=== PATIENT | male | born 1960 | race Caucasian/White ===

== ENCOUNTER 2024-10-03 12:33 | Emergency (ER) | payer OTHER, SELFPAY ==
[2024-10-03] VITALS (21 sets, daily range): BP systolic 130–172; BP diastolic 52–115; PULSE 85–142; RESP 13–33; O2SAT 96–100
--- NOTE | ~2024-10-03 | CT_ITS ---
CT brain wo con Ordering provider: Brown Khan MD History: 64 years Male with . AMS, possible withdrawals . Comparison: None. Technique: CT of the head without contrast. Radiation reduction technique utilized. The dose-length product was [id number]. FINDINGS: BRAIN PARENCHYMA AND CSF SPACES: Hypodensity in the left frontal lobe which is most likely chronic in farct.. No midline shift, mass effect or hemorrhage. The brain parenchyma and CSF spaces are otherwi se normal. Old lacunar infarcts seen in the left basal ganglia and both thalami. VISUALIZED PARANASAL SINUSES: Well aerated. MASTOIDS: Well aerated. BONES: The bones appear intact. SOFT TISSUES: Visualized nasopharynx is normal. Superficial soft tissues are normal. IMPRESSION: No acute intracranial findings. Reviewed, dictated and finalized at location A.
--- NOTE | 2024-10-03 12:36 | ECG_ITS ---
Test Date: 2024-10-03 12:47:29 Measurements Intervals [place] Rate: 93 P: 81 [place]: 142 QRS: -1 QRSD: 81 T: 76 QT: 349 QTc: 435 Interpretive Statements SINUS RHYTHM POSSIBLE LEFT ATRIAL ENLARGEMENT POSSIBLE RIGHT VENTRICULAR CONDUCTION DELAY BORDERLINE R WAVE PROGRESSION, ANTERIOR LEADS BASELINE ARTIFACT- I, II, AVR, AVL, AVF, V1 BORDERLINE ECG No previous ECG available for comparison Electronically Signed On 10-03-2024 13:05:02 CDT by Blair Novoa D.O.
[2024-10-03 12:51] LABS: Basophils Absolute Auto 0.1 K/mm3 (0.0-0.1); Basophils Percent Auto 0.6 % (0.2-1.2); Eosinophils Absolute Auto 0.1 K/mm3 (0-0.3); Hematocrit 42.6 % (42.0-52.0); Hemoglobin 14.6 g/dL (14.0-18.0); Immature Granulocyte Absolute 0.04 K/mm3 (0.00-0.031); Immature Granulocyte Percent A 0.3 % (0-0.5); Lymphocytes Absolute Auto 2.19 K/mm3 (0.9-3.2); Lymphocytes Percent Auto 19.2 % (18.3-44.2); Mean Corpuscular HGB Conc 34.3 g/dl (32-36); Mean Corpuscular Hemoglobin 30.4 pg (26-34); Mean Corpuscular Volume 88.8 fl (80-100); Mean Platelet Volume 9.1 fl (7.4-10.4); Monocytes Absolute Auto 0.7 K/mm3 (0.1-0.6); Monocytes Percent Auto 6.5 % (2.6-8.5); Neutrophils Absolute Auto 8.3 K/mm3 (1.3-6.7); Neutrophils Percent Auto 72.4 % (45.5-73.1); Platelet Count Result 203 k/mm3 (150-375); Red Cell Distribution Width 13.9 % (11.5-14.5); White Blood Count 11.4 K/mm3 (4.5-10.0)
[2024-10-03 12:59] LABS: Alanine Aminotransferase 160 U/L (6-50); Albumin Level 4.9 g/dL (3.5-5.1); Alkaline Phosphatase 141 U/L (38-126); Anion Gap 17 mmol/L (4-12); Aspartate Amino Transferase 154 U/L (17-59); Bilirubin,Total 1.8 mg/dL (0.2-1.3); Blood Urea Nitrogen 6 mg/dL (9-20); Calcium 9.2 mg/dL (8.4-10.2); Carbon Dioxide 22 mmol/L (22-30); Chloride 93 mmol/L (98-107); Estimated CRCL calculation 103 ml/min; Estimated Glomerular Filt Rate > 60; Glucose 140 mg/dL (65-110); Potassium 4.4 mmol/L (3.4-5.0); Sodium 132 mmol/L (137-145); Total Protein 8.7 g/dL (6.3-8.2)
[2024-10-03 13:08] LABS: INR 1.1; Prothrombin Time 14.2 Seconds (11.1-14.7)
[2024-10-03 13:09] LABS: Partial Thromboplastin Time 29.7 Seconds (22.3-36.8)
--- OUTSIDE RECORDS SUMMARY | 2024-10-03 13:23 | XMS_ITS | Clinical Summary ---
Author Organization [facility] Address [address] [place] [address] Care Team Providers Care Laboratory Operations Coordinator Name Role Phone Kartik Lunsford DO Primary Care Provider [phone] [facility],non-owned Affiliates and Associated Physician Practices is amultiple site organization consisting of ambulatory clinics and hospital sitesin [place] and [place]. This disclosure is being madepursuant to the Care Everywhere program and may not contain all information available regarding this patient. Last updated 18.[facility] Allergies No known active allergies Medications * Be aware that medications may not be up to date on this document. Alwaysverify current medications with the patient. timolol maleate (Timoptic) 0.5 % ophthalmic solutionIndica tions:Glaucoma Instill 1 (one) drop into both eyes 2 times daily Reasons: Glaucoma Active rsv vaccine preg or 60y+ (Abrysvo) 120 MCG/0.5ML SOLR injection Pharmacist to administer 0.5 mL intramuscularly for 1 dose. 1 mL 10/15/19 24 Active Additional Information Patient not taking.Reported on 11/02/2023 brimonidine (Alphagan) 0.2 % ophthalmic solution 1 (one) drop 2 times daily Active amLODIPine (Norvasc) 5 MG tablet Take 1 (one) tablet by mouth once daily 90 tablet 3 04/19/20 24 Active atorvastatin (Lipitor) 40 MG tablet Take 1 (one) tablet by mouth at bedtime 90 tablet 1 04/29/19 25 Active apixaban (Eliquis) 5 MG tablet Take 1 (one) tablet by mouth 2 times daily for a total of 90 days from 09/17/2023, then check with neurology for further need. 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 - Cardiology [address] [place] [phone] PFO (patent foramen ovale) (HCC) ; Acute ischemic stroke (HCC); Status post placement of implantable loop recorder 08/04/2024 1:00 AM CDT Clinical Support [facility] - Cardiology [address] [place] [phone] PFO (patent foramen ovale) (HCC) ; Acute ischemic stroke (HCC) from Last 3 Months Social History Tobacco Use Types Packs/Day Years Used Date Smoking Tobacco: Former Cigarettes 1 15 0 09/17/2008 - 09/18/2023 Passive Smoke Exposure: Current Smokeless Tobacco: Never Tobacco Cessation:Counseling Given: Not Answered Alcohol Use Standard Drinks/Week Comments Not Currently 0 (1 standard drink = 0.6 oz pur e alcohol) AUDIT-C Answer Date Recorded Q1: How often do you have a drink containing alcohol? Never 06/06/2024 Q2: How many drinks containi ng alcohol do you have on a typical day when you are drinking? Patient does not drink Q3: How often do you have si x or more drinks on one occasion? Never 06/06/2024 Overall Financial Resource Strain (CARDIA) Answe r Date Recorded How hard is it for you to pa y for the very basics like food, housing, medical care, and heating? Not hard at all 09/17/2023 PHQ-2 Answer Date Recorded Patient Health Questionnaire-2 Score 0 09/22/2023 [facility] Occupat ional Health - Occupational Stress Questionnaire Answer Date Recorded Do you feel stress - tense, restless, nervous, or anxious, or unable to sleep at night because your mind is troubled all the time - these days? Patient unable to answer 09/17/2023 Hunger Vital Sign Answer Date Recorded Within the past 12 months, y ou worried that your food would run out before you got the money to buy more. Never true 09/17/19 24 Within the past 12 months, t he food you bought just didn't last and you didn't have money to get more. Never true 09/17/2023 PRAPARE - Transportation Answer Date Re corded In the past 12 months, has l ack of transportation kept you from medical appointments or from getting medications? No 08/20 In the past 12 months, has l ack of transportation kept you from meetings, work, or from getting things needed for daily living? No 09/17/2023 Housing Stability Vital Sign Answer Fam e Recorded In the last 12 months, was t here a time when you were not able to pay the mortgage or rent on time? No 09/17/2023 In the last 12 months, how many places have you lived? 1 09/17/2023 In the last 12 months, was t here a time when you did not have a steady place to sleep or slept in a assisted (including now)? 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 Gender Identity Not on file Sexual Orientation Not on file Last Filed Vital Signs Vital Sign Reading Time Taken Comments Blood Pressure 144/97 10/02/2024 8:09 PM CDT Pulse 97 10/02/2024 8:09 PM CDT Temperature 36.2 C (97.2 F) 10/02/2024 8:09 PM CDT Respiratory Rate 18 10/02/2024 8:09 PM CDT Oxygen Saturation 100% 10/02/2024 8:09 PM CDT Inhaled Oxygen Concentration - - Weight 67.1 kg (148 lb) 10/02/2024 8:09 PM CDT Height 182.9 cm (6') 10/02/2024 8:09 PM CDT Body Mass Index 20.07 10/02/2024 8:09 PM CDT Plan of Treatment Upcoming Encounters Date Type Department Care Team (Late st Contact Info) Description 10/13/2024 1:10 AM CDT Clinical Support [facility] - Cardiology [address], [address] [phone] 11/17/2024 1:00 AM CDT Clinical Support [facility] - Cardiology [address], [address] [phone] 12/22/2024 1:00 AM CDT Clinical Support [facility]iology [address], [address] [phone] 01/26/2025 1:00 AM CDT Clinical Support [facility] - Cardiology [address], [address] [address] 03/02/2025 1:00 AM 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 Clinical Support [facility] - Cardiology [address], [address] [address] 04/06/2025 1:00 AM 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 Clinical Support [facility] - Cardiology [address], [address] [phone] Health Maintenance Due Date Last Done Comments COLOGUARD (AGES 45-75) - COLON CA SCREENING 1958 COLON MONITORING 1958 COLONOSCOPY - COLON CA SCREENING 1958 CT COLONOGRAPHY - COLON CA SCREENING 1958 Colorectal Cancer Screening 1958 FIT - COLON CA SCREENING 1958 FLEX SIG - COLON CA SCREENING 1958 MEDICARE AWV 12 MONTHS 1958 HEPATITIS C SCREENING 09/08/1976 DTAP/TDAP/TD VACCINES (1 - Tdap) 1977 PNEUMOCOCCAL VACCINE 50+ (1 of 1 - PCV) 2008 ZOSTER VACCINE (1 of 2) 2008 Respiratory Syncytial Virus (RSV) Vaccine Pt: or over 60 yrs (1 - Risk 60-74 years 1-dose series) 2018 AAA SCREENING 09/14/2023 COVID-19 VACCINE ( season) 2023 02/15/2023, 03/09/2022, 03/10/2021, Additional history exists DEPRESSION SCREENING 04/20/2024 09/21/2023 INFLUENZA VACCINE (Season Ended) 2024 HEPATITIS B VACCINE Aged Out No longe r eligible based on patient's age to complete this topic HIB VACCINE Aged Out No longer eligi ble based on patient's age to complete this topic HPV VACCINE Aged Out No longer eligi ble based on patient's age to complete this topic MENINGOCOCCAL (Group B) VACCINE SHARED DECISION-MAKING Aged Out No longer eligible based on patient's age to complete this topic MENINGOCOCCAL GROUPS A/C/Y/W VACCINE Aged Out No longer eligible based on patient's age to complete this topic Medical Devices Implanted Type Area Gallery Host Device Identifier Shelf Expiration Date Model / Serial / Lot Sys Crd Mntr Rvl Linq Ii - [id number] Implanted:Qty: 1 on 09/21/2023 by Rebekah Dhillon MD at [facility] [id number] 08/05/2024 [id number] SYS / [id number] Oclr Cv 25mm Spt Sft Wire [facility] Img - [id number] Implanted:Qty: 1 on 06/06/2024 by Charlette Scruggs MD at [facility] [employer] [id number] 09/20/2025 [id number] / [id number] / [id number] Procedures Procedure Name Priority Date/Time Associated Diagnosis Comments ERYTHROCYTE SEDIMENTATION RATE STAT 10/02/2024 9:05 PM CDT C-REACTIVE PROTEIN MELO 10/02/2024 9: 05 PM CDT COMPREHENSIVE METABOLIC PANEL STAT 10/02/2024 9:05 PM CDT CBC W AUTO DIFFERENTIAL STAT 10/02/2024 9:05 PM CDT ID ILR DEVICE INTERROGAT REMOTE Routine 09/24/2024 10:12 AM CDT PFO (patent foramen ovale) (HCC) Acute ischemic stroke (HCC) Status post placement of implantable loop recorder CARDIAC PROCEDURE ORDER 09/07/2024 ID ILR DEVICE INTERROGAT REMOTE Routine 08/06/2024 2:19 PM CDT PFO (patent foramen ovale) (HCC) Acute ischemic stroke (HCC) CARDIAC PROCEDURE ORDER 08/03/2024 ID ILR DEVICE INTERROGAT REMOTE Routine 07/11/2024 7:12 AM CDT PFO (patent foramen ovale) Acute ischemic stroke from Last 3 Months Results * C-REACTIVE PROTEIN (10/02/2024 9:05 PM CDT) C-Reactive Protein <0.5 <=0.5 mg/dL 10/02/2024 9:42 PM CDT [facility] Blood BLOOD SPECIMEN / Unknown Venipuncture / Unknown 10/02/2024 9:05 PM CDT 10/02/2024 9:10 PM CDT us Odalis Miramontes PA-C LAB - CHEMISTRY ORDERABLES Josephine lynne Result [facility] [address] [place] [address], [facility] [phone] * ERYTHROCYTE SEDIMENTATION RATE (10/02/2024 9:05 PM CDT) Erythrocyte Sedimentation Rate Westergren 9 0 - 20 MM/HR 10/02/2024 9:31 PM [facility] Blood BLOOD SPECIMEN / Unknown Venipuncture / Unknown 10/02/2024 9:05 PM CDT 10/02/2024 9:10 PM CDT us Odalis Miramontes PA-C LAB - HEMATOLOGY ORDERABLES Fin al Result [facility] [address] [place] [address], [facility] [phone] * (ABNORMAL) CBC W AUTO DIFFERENTIAL (10/02/2024 9:05 PM CDT) WBC 10.6 4.0 - 10.7 x10E9/L 10/02/2024 9:21 PM [facility] RBC Count 4.85 4.30 - 5.80 x10E12/L 10/02/2024 9:21 PM [facility] Hemoglobin 14.6 13.3 - 17.5 g/dL 10/02/2024 9:21 PM [facility] Hematocrit 41.1 38.7 - 51.1 % 10/02/2024 9:21 PM [facility] MCV 84.7 80.0 - 98.0 fL 10/02/2024 9:21 PM [facility] MCH 30.1 26.7 - 33.6 pg 10/02/2024 9:21 PM [facility] MCHC 35.5 31.7 - 36.3 g/dL 10/02/2024 9:21 PM [facility] RDW-CV 13.7 11.3 - 14.8 % 10/02/2024 9:21 PM [facility] Platelet Count 219 150 - 420 x10E9/L 10/02/2024 9:21 PM [facility] MPV 9.1 7.8 - 11.4 fL 10/02/2024 9:21 PM [facility] Neutrophil % 57.4 41.0 - 74.0 % 10/02/2024 9:21 PM [facility] Lymphocyte % 25.6 17.0 - 47.0 % 10/02/2024 9:21 PM [facility] Monocyte % 11.8(H) 3.0 - 11.0 % 10/02/2024 9:21 PM [facility] Eosinophil % 4.2 0.0 - 7.0 % 10/02/2024 9:21 PM [facility] Basophil % 0.8 0.0 - 1.6 % 10/02/2024 9:21 PM [facility] Immature Granulocytes % 0.2 0.0 - 1.0 % 10/02/2024 9:21 PM [facility] Neutrophil Absolute 6.10 1.60 - 7.50 x10E9/L 10/02/2024 9:21 PM [facility] Lymphocyte Absolute 2.71 1.00 - 4.40 x10E9/L 10/02/2024 9:21 PM [facility] Monocyte Absolute 1.25(H) 0.15 - 1.00 x10E9/L 10/02/2024 9:21 PM [facility] Eosinophil Absolute 0.44 0.00 - 0.60 x10E9/L 10/02/2024 9:21 PM [facility] Basophil Absolute 0.08 0.00 - 0.13 x10E9/L 10/02/2024 9:21 PM [facility] Blood BLOOD SPECIMEN / Unknown Venipuncture / Unknown 10/02/2024 9:05 PM CDT 10/02/2024 9:10 PM CDT us Odalis Miramontes PA-C LAB - HEMATOLOGY ORDERABLES Fin al Result [facility] [address] [place] [address], [facility] [phone] * (ABNORMAL) COMPREHENSIVE METABOLIC PANEL (10/02/2024 9:05 PM CDT) BUN <5(L) 7 - 26 mg/dL 10/02/2024 9:41 PM [facility] Creatinine 0.56(L) 0.71 - 1.16 mg/dL 10/02/2024 9:41 PM [facility] Sodium 131(L) 136 - 145 mmol/L 10/02/2024 9:41 PM [facility] Potassium 4.3 3.5 - 4.5 mmol/L 10/02/2024 9:41 PM [facility] Chloride 96(L) 98 - 107 mmol/L 10/02/2024 9:41 PM [facility] CO2 25 22 - 29 mmol/L 10/02/2024 9:41 PM [facility] Glucose 122(H) 70 - 99 mg/dL 10/02/2024 9:41 PM [facility] Calcium 9.0 8.4 - 10.2 mg/dL 10/02/2024 9:41 PM [facility] Protein Total 8.0 6.0 - 8.3 g/dL 10/02/2024 9:41 PM [facility] Albumin 4.6 3.4 - 5.0 g/dL 10/02/2024 9:41 PM [facility] Bilirubin Total 1.0 0.2 - 1.2 mg/dL 10/02/2024 9:41 PM [facility] Alkaline Phosphatase 110 40 - 150 U/L 10/02/2024 9:41 PM [facility] ALT 157(H) 5 - 55 U/L 10/02/2024 9:41 PM [facility] AST 178(H) 5 - 34 U/L 10/02/2024 9:41 PM [facility] Anion Gap 10 6 - 16 10/02/2024 9:41 PM [facility] BUN/Creatinine Ratio <9 7 - 23 10/02/2024 9:41 PM [facility] Osmolality Calculated <271(L) 275 - 295 mOsm/kg 10/02/2024 9:41 PM [facility] Albumin/Globulin Ratio 1.4 1.1 - 2.3 10/02/2024 9:41 PM CDT [facility] eGFR by CKD-EPI >90 >=90 mL/min/1.7 3 m2 10/02/2024 9:41 PM CDT [facility] Blood BLOOD SPECIMEN / Unknown Venipuncture / Unknown 10/02/2024 9:05 PM CDT 10/02/2024 9:10 PM CDT Narrative [facility] - 10/02/2024 9:41 PM CDT Estimated Glomerular Filtration Rate (eGFR) calculated using the CKD-EPI Creatinine Equation (2020), per the National Kidney Foundation and [place] [employer]ph[employer] recommendations. us Odalis Miramontes PA-C LAB - CHEMISTRY ORDERABLES Josephine batista Result [facility] [address] [place] [address], [facility] [phone] * ID ILR DEVICE INTERROGAT REMOTE (09/24/2024 10:12 AM CDT) Narrative Adriano Mcfadden MD - 09/24/2024 10:12 AM CDT Adriano Mcfadden MD 09/24/2024 10:12 AM Dear Waldemar Sims, I reviewed the remote interrogation of your loop recorder. Your device's sensing is appropriate and stable. During this most recent monitored period ending on 09/07/2024 your atrial fibrillation/tachycardia burden was 0% and you had no significant arrhythmias. Device function is normal, no programming changes are required, and no medications will need to be changed. Please call our offices if you have any further questions. Sincerely, Adriano Mcfadden 09/24/2024 us Adriano Mcfadden MD PROCEDURE/MINOR SURGICAL ORDERAB LES Final Result * CARDIAC PROCEDURE ORDER (09/07/2024) Only the most recent of2 resultswithin the time period is included. Narrative 09/07/2024 Ordered by an unspecified provider. us Scanned Document CARDIAC SERVICES ORDERABLES Fin al Result * ID ILR DEVICE INTERROGAT REMOTE (08/06/2024 2:19 PM CDT) Destiny May MD - 08/06/2024 2:19 PM CDT Destiny Sheehan MD 08/08/2024 12:02 PM Remote Interrogation: Pertinent Findings: Device function within normal limits. Afib burden 1.9%. On OAC. Destiny Sheehan MD Cardiac Electrophysiology Destiny Sheehan MD PROCEDURE/MINOR SURGICAL ORDERAB LES Final Result * ID ILR DEVICE INTERROGAT REMOTE (07/11/2024 7:12 AM CDT) Narrative Adriano Mcfadden MD - 07/11/2024 7:12 AM CDT Adriano Mcfadden MD 07/11/2024 7:13 AM Dear Waldemar Sims, I reviewed the remote interrogation of your loop recorder. Your device's sensing is appropriate and stable. During this most recent monitored period ending on 06/29/2024 your atrial fibrillation/tachycardia burden was 0% and you had no significant arrhythmias. Device function is normal, no programming changes are required, and no medications will need to be changed. Please call our offices if you have any further questions. Sincerely, Adriano Mcfadden 07/11/2024 Adriano Mcfadden MD PROCEDURE/MINOR SURGICAL ORDERAB LES Final Result from Last 3 Months Insurance [facility] MEDICARE ADV PPO Advance Directives * Full Code (Latest Code Status on File) Date Activated Date Inactivated Comments 06/06/2024 11:27 AM 06/06/2024 5:05 PM * Full Code Date Activated Date Inactivated Comments 09/17/2023 1:06 PM 09/23/2023 10:32 PM Care Teams Laboratory Operations Coordinator Relationship Specialty Start Date End Date Kartik Lunsford DO [address] [place] [phone] PCP - General Internal Medicine 10/30/23
--- OUTSIDE RECORDS SUMMARY | 2024-10-03 13:23 | XMS_ITS | Encounter Summary ---
Author Organization [facility] Address [address] [place] [address] Care Team Providers Care Helicopter Repairer Name Role Phone Kartik Lunsford DO Primary Care Provider [phone] Encounter Details Date Type Department Care Team (Latest Contact Info) Description 10/02/2024 Travel Social History Tobacco Use Types Packs/Day Years Used Date Smoking Tobacco: Former Cigarettes 1 15 0 09/17/2008 - 09/18/2023 Passive Smoke Exposure: Current Smokeless Tobacco: Never Alcohol Use Standard Drinks/Week Comments Not Currently [...] Recorded Patient Health Questionnaire-2 Score 0 09/22/2023 [facility] of Occupat ional Health - Occupational Stress [...] place to sleep or slept in a mcc (including now)? 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 Answer Date of Assessment Author No 06/06/2024 11:16 AM Rosario RN * Is person blind or have serious difficulty seeing? Answer Date of Assessment Author No 06/06/2024 11:16 AM Rosario RN * Does person have serious difficulty walking/climbing stairs? Answer Date of Assessment Author No 06/06/2024 11:16 AM Rosario RN * Does person have difficulty dressing/bathing? Answer Date of Assessment Author No 09/17/2023 3:27 PM Patsy Montero RN * Does person have difficulty doing errands alone? Answer Date of Assessment Author No 06/06/2024 11:16 AM Rosario RN documented as of this encounter Mental Status * Does person have difficulty concentrating/remembering/making decisions? Answer Entry Date Author No 06/06/2024 11:16 AM BURNING MACHINE OPERATOR Bowles RN documented in this encounter Plan of Treatment Upcoming Encounters Date Type Department Care Team (Late st Contact Info) Description 10/13/2024 1:10 AM CDT Clinical Support [facility] - Cardiology [address], [place] [address] [place] [phone] 11/17/2024 1:00 AM CDT Clinical Support [facility] - Cardiology [address], [place] [address] [place] [phone] 12/22/2024 1:00 AM CDT Clinical Support [facility] [address], [place] [address] [place] [phone] 01/26/2025 1:00 AM CDT Clinical Support [facility] [address], [address] [address] 03/02/2025 1:00 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
--- OUTSIDE RECORDS SUMMARY | 2024-10-03 13:23 | XMS_ITS | Encounter Summary ---
Author Organization [facility] Address [address] [facility] [place] [address] Care Team Providers Care Static Balancer Name Role Phone Kartik Lunsford DO Primary Care Provider [phone] Reason for Visit * Reason Comments Lower Extremity Problem Pt stated that juancarlos mckeon has a fungal infection to right ankle x 2 months. Pt denies musa, denies itching to area of concern. Encounter Details Date Type Department Care Team (Late st Contact Info) Description 10/03/2024 9:25 AM CDT - 10/03/2024 9:55 AM CDT Emergency [facility] EMERGENCY DEPARTMENT [address] [place] [phone] Discharge Disposition: Left Against Medical Advice/Discontinued Care Social History Tobacco Use Types Packs/Day Years [...] Recorded Patient Health Questionnaire-2 Score 0 09/22/2023 [facility] - Occupational Stress Questionnaire Answer Date Recorded [...] place to sleep or slept in a halfway (including now)? 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 Answer Date of Assessment Author No 06/06/2024 11:16 AM Rosario RN documented as of this encounter Mental Status * Does person have difficulty concentrating/remembering/making decisions? Answer Entry Date Author No 06/06/2024 11:16 AM Rosario RN documented in this encounter Medications at Time of Discharge amLODIPine (Norvasc) 5 MG tablet Take 1 (one) tablet by mouth once daily 90 tablet 3 04/19/2024 apixaban (Eliquis) 5 MG tablet Take 1 (one) tablet by mouth 2 times daily for a total of 90 days from 09/17/2023, then check with neurology for further need. 180 tablet 3 05/02/2024 atorvastatin (Lipitor) 40 MG tablet Take 1 (one) tablet by mouth at bedtime 90 tablet 1 04/29/2024 brimonidine (Alphagan) 0.2 % ophthalmic solution 1 (one) drop 2 times daily rsv vaccine preg or 60y+ (Abrysvo) 120 MCG/0.5ML SOLR injection Pharmacist to administer 0.5 mL intramuscularly for 1 dose. 1 mL 10/15/2023 timolol maleate (Timoptic) 0.5 % ophthalmic solutionIndicat ions:Glaucoma Instill 1 (one) drop into both eyes 2 times daily Reasons: Glaucoma documented as of this encounter ED Notes * Hannah Kearney EMT - 10/03/2024 8:53 AM CDT Call x3. Pt not found in WR. AMA form uploaded ATT. * Hannah Kearney EMT - 10/03/2024 8:36 AM CDT Call x2. Pt not found in WR. * Elida Isaac - 10/03/2024 5:49 AM CDT Pt not present in WR during rounding * Odalis Miramontes PA-C - 10/02/2024 8:22 PM CDT Medical Screening Exam 10/02/2024 8:22 PM Provider contact with the patient Waldemar Sims CC: Lower Extremity Problem (Pt stated that he has a fungal infection to right ankle x 2 months. Ptdenies musa, denies itching to area of concern. ) Chief complaint narrative was entered by triage nurse, not by provider Provider in Triage HPI: Waldemar Sims is a 64 year old male PMH as noted below who presents with lower extremity wounds. Patient states that he has had an infection on his ankles for the last 2 months. He started on his right ankle and is now slowly on his left ankle. States it is nontender and has tried putting sipx-tud-vzaawku lotion on it with no help. Patient denies history of DM, cardiac problems, HTN. Limited Chart History: Past Medical History[1] Past Surgical History[2] Medications[3] Allergies[4] PCP: Kartik Lunsford DO (Above may be pending completion) Review of Systems: Primary System Noted in HPI. All other systems reviewed and are negative. Vital Signs reviewed in Triage BP 144/97 Pulse 97 Temp 97.2 ??F (36.2 ??C) (Temporal) Resp 18 Ht 1.829 m (6') Wt 67.1 kg(148 lb) SpO2 100% Pertinent Physical Findings: Constitutional: vitals as above, pleasant, well-groomed, sitting comfortably in chair no acute distress Head: Head normocephalic, atraumatic Eyes: conjunctiva clear ENT: no rhinorrhea Neck: neck supple Resp: respirations even and unlabored CV: Heart RRR, no m/c/r/g, pedal pulse 2+ Abd: nondistended Skin: warm, dry,color normal for ethnicity, wounds on medial lateral right ankle and medial left ankle with scabbing and flaking of skin over all wounds MSK: ambulatory, moves all extremities Neuro: A&O x 3, CN 2-12 grossly intact bilat Psych: Normal affect Complete physical exam is limited due to patient sitting in up right position in chair MDM: I have reviewed all lab and imaging resulted ordered during this visit and available at the time ofthis note. Triage notes and available nursing notes reviewed. Previous medical record reviewed whenavailable. Management options include but not limited to: physical exam, laboratory testing, discussion with other providers. MEDICATIONS FOR CURRENT ENCOUNTER: SCHEDULED MEDICATIONS: No current facility-administered medications for this encounter. CONTINUOUS MEDICATIONS: No current facility-administered medications for this encounter. PRN MEDICATIONS: No current facility-administered medications for this encounter. Clinical Impression: 1. Bilateral lower extremity wounds Media taken of both feet and added to patient's chart Based on the Medical Screening Exam performed and diagnostic tests at this time, further evaluationis indicated and will be performed. Patient will be transferred to a main ED room when one is available and care will be transferred to ER provider. Odalis Miramontes PA-C [1] Past Medical History: Diagnosis Date High cholesterol HTN (hypertension) [2] Past Surgical History: Procedure Laterality Date Cardiac Catherization N/A 06/06/2024 N/A; Patent Foramen Ovale (PFO) Closure ELECTROPHYSIOLOGIC STUDY N/A 09/21/2023 N/A; Loop Recorder Implant [3] No current facility-administered medications for this encounter. Current Outpatient Medications Medication Sig Dispense Refill amLODIPine (Norvasc) 5 MG tablet Take 1 (one) tablet by mouth once daily 90 tablet 3 apixaban (Eliquis) 5 MG tablet Take 1 (one) tablet by mouth 2 times daily for a total of 90 days from 09/17/2023, then check with neurology for further need. 180 tablet 3 atorvastatin (Lipitor) 40 MG tablet Take 1 (one) tablet by mouth at bedtime 90 tablet 1 brimonidine (Alphagan) 0.2 % ophthalmic solution 1 (one) drop 2 times daily rsv vaccine preg or 60y+ (Abrysvo) 120 MCG/0.5ML SOLR injection Pharmacist to administer 0.5 mL intramuscularly for 1 dose. (Patient not taking: Reported on 11/02/2023) 1 mL 0 timolol maleate (Timoptic) 0.5 % ophthalmic solution Instill 1 (one) drop into both eyes 2 times daily Reasons: Glaucoma [4] No Known Allergies documented in this encounter Plan of Treatment Upcoming Encounters Date Type Department Care Team (Late st Contact Info) Description 10/13/2024 1:10 AM CDT Clinical Support [facility] [address] [facility] [address] [phone] 11/17/2024 1:00 AM CDT Clinical [facility] [address] [facility], [address] [phone] 12/22/2024 1:00 AM CDT Clinical 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 Clinical Support [facility] - Cardiology [address] [facility], [address] [phone] 04/06/2025 1:00 AM FRAME OPERATOR Clinical Support [facility] - Cardiology [address] [facility], [address] [phone] documented as of this encounter Procedures Procedure Name Priority Date/Time Associated Diagnosis Comments C-REACTIVE PROTEIN MELO 10/02/2024 9: 05 PM CDT ERYTHROCYTE SEDIMENTATION RATE STAT 10/02/2024 9:05 PM CDT CBC W AUTO DIFFERENTIAL STAT 10/02/2024 9:05 PM CDT COMPREHENSIVE METABOLIC PANEL STAT 10/02/2024 9:05 PM CDT documented in this encounter Results * ERYTHROCYTE SEDIMENTATION RATE (10/02/2024 9:05 PM CDT) Erythrocyte Sedimentation Rate Westergren 9 0 - 20 MM/HR 10/02/2024 9:31 PM CDT [facility] Blood BLOOD SPECIMEN / Unknown Venipuncture / Unknown 10/02/2024 9:05 PM CDT 10/02/2024 9:10 PM CDT Odalis Miramontes PA-C LAB - HEMATOLOGY ORDERABLES Fin al Result Performing Organization Address City/[facility]/ZIP Co de Phone Number [address] [address], [facility] [phone] * C-REACTIVE PROTEIN (10/02/2024 9:05 PM CDT) C-Reactive Protein <0.5 <=0.5 mg/dL 10/02/2024 9:42 PM CDT [facility] Blood BLOOD SPECIMEN / Unknown Venipuncture / Unknown 10/02/2024 9:05 PM CDT 10/02/2024 9:10 PM CDT Odalis Miramontes PA-C LAB - CHEMISTRY ORDERABLES Josephine l Result Performing Organization Address City/[facility]/ZIP Co de Phone Number [address] [address], [facility] [phone] * (ABNORMAL) COMPREHENSIVE METABOLIC PANEL (10/02/2024 9:05 PM [facility]) BUN <5(L) 7 - 26 mg/dL 10/02/2024 9:41 PM [facility] Creatinine 0.56(L) 0.71 - 1.16 mg/dL 10/02/2024 9:41 PM [facility] Sodium 131(L) 136 - 145 mmol/L 10/02/2024 9:41 PM [facility] Potassium 4.3 3.5 - 4.5 mmol/L 10/02/2024 9:41 PM [facility] Chloride 96(L) 98 - 107 mmol/L 10/02/2024 9:41 PM [facility] CO2 25 22 - 29 mmol/L 10/02/2024 9:41 PM [facility] Glucose 122(H) 70 - 99 mg/dL 10/02/2024 9:41 PM [facility] Calcium 9.0 8.4 - 10.2 mg/dL 10/02/2024 9:41 PM [facility] Protein Total 8.0 6.0 - 8.3 g/dL 10/02/2024 9:41 PM [facility] Albumin 4.6 3.4 - 5.0 g/dL 10/02/2024 9:41 PM [facility] Bilirubin Total 1.0 0.2 - 1.2 mg/dL 10/02/2024 9:41 PM [facility] Alkaline Phosphatase 110 40 - 150 U/L 10/02/2024 9:41 PM [facility] ALT 157(H) 5 - 55 U/L 10/02/2024 9:41 PM [facility] AST 178(H) 5 - 34 U/L 10/02/2024 9:41 PM [facility] Anion Gap 10 6 - 16 10/02/2024 9:41 PM [facility] BUN/Creatinine Ratio <9 7 - 23 10/02/2024 9:41 PM [facility] Osmolality Calculated <271(L) 275 - 295 mOsm/kg 10/02/2024 9:41 PM [facility] Albumin/Globulin Ratio 1.4 1.1 - 2.3 10/02/2024 9:41 PM [facility] eGFR by CKD-EPI >90 >=90 mL/min/1.7 3 m2 10/02/2024 9:41 PM [facility] Blood BLOOD SPECIMEN / Unknown Venipuncture / Unknown 10/02/2024 9:05 PM CDT 10/02/2024 9:10 PM CDT [facility] - 10/02/2024 9:41 PM CDT Estimated Glomerular Filtration Rate (eGFR) calculated using the CKD-EPI Creatinine Equation (2020), per the National Kidney Foundation and [place] [employer]ph[employer] recommendations. Odalis Miramontes PA-C LAB - CHEMISTRY ORDERABLES Josephine batista Result [facility] [address] [place] [address], [facility] [phone] * (ABNORMAL) CBC W AUTO DIFFERENTIAL (10/02/2024 9:05 PM T) WBC 10.6 4.0 - 10.7 x10E9/L 10/02/2024 9:21 PM [facility] RBC Count 4.85 4.30 - 5.80 x10E12/L 10/02/2024 9:21 PM [facility] Hemoglobin 14.6 13.3 - 17.5 g/dL 10/02/2024 9:21 PM [facility] Hematocrit 41.1 38.7 - 51.1 % 10/02/2024 9:21 PM [facility] MCV 84.7 80.0 - 98.0 fL 10/02/2024 9:21 PM [facility] MCH 30.1 26.7 - 33.6 pg 10/02/2024 9:21 PM [facility] MCHC 35.5 31.7 - 36.3 g/dL 10/02/2024 9:21 PM [facility] RDW-CV 13.7 11.3 - 14.8 % 10/02/2024 9:21 PM [facility] Platelet Count 219 150 - 420 x10E9/L 10/02/2024 9:21 PM [facility] MPV 9.1 7.8 - 11.4 fL 10/02/2024 9:21 PM [facility] Neutrophil % 57.4 41.0 - 74.0 % 10/02/2024 9:21 PM [facility] Lymphocyte % 25.6 17.0 - 47.0 % 10/02/2024 9:21 PM [facility] Monocyte % 11.8(H) 3.0 - 11.0 % 10/02/2024 9:21 PM [facility] Eosinophil % 4.2 0.0 - 7.0 % 10/02/2024 9:21 PM [facility] Basophil % 0.8 0.0 - 1.6 % 10/02/2024 9:21 PM [facility] Immature Granulocytes % 0.2 0.0 - 1.0 % 10/02/2024 9:21 PM [facility] Neutrophil Absolute 6.10 1.60 - 7.50 x10E9/L 10/02/2024 9:21 PM [facility] Lymphocyte Absolute 2.71 1.00 - 4.40 x10E9/L 10/02/2024 9:21 PM [facility] Monocyte Absolute 1.25(H) 0.15 - 1.00 x10E9/L 10/02/2024 9:21 PM [facility] Eosinophil Absolute 0.44 0.00 - 0.60 x10E9/L 10/02/2024 9:21 PM [facility] Basophil Absolute 0.08 0.00 - 0.13 x10E9/L 10/02/2024 9:21 PM [facility] Blood BLOOD SPECIMEN / Unknown Venipuncture / Unknown 10/02/2024 9:05 PM CDT 10/02/2024 9:10 PM [facility] us Odalis Miramontes PA-C LAB - HEMATOLOGY ORDERABLES Fin al Result [facility] [address] [address], [facility] [phone] documented in this encounter Visit Diagnoses Not on filedocumented in this encounter Administered Medications Inactive Administered Medications - up to 3 most recent administrations Medication Order MAR Action Action Date Dose Rate Site 0.9% NaCl injection 1-10 mL 1-10 mL, Intracatheter, PRN, Other, peripheral line flush, Starting on Thu10/02/24 at 2028, Until Thu10/03/24 at 1055, Flush peripheral IV catheter with 1-10 mL of normal saline before and after medications and prn to clear blood from the line or to verify patency. 0.9% NaCl injection 3 mL 3 mL, Intracatheter, EVERY 8 HOURS, First dose on Thu10/02/24 at 2200, Until Discontinued, Flush peripheral IV catheter with 3 mL of normal saline every 8 hours. documented in this encounter Active and Recently Administered Medications Times are shown in CDT. Scheduled Medication Order 10/01/2024 10/02/2024 10/03/2024 0.9% NaCl injection 3 mL(Linked Group 1) 3 mL, Intracatheter, EVERY 8 HOURS, First dose on Thu10/02/24 at 2200, Until Discontinued, Flush peripheral IV catheter with 3 mL of normal saline every 8 hours. 2200 (Due) 0600 (Due) PRN Medication Order 10/01/2024 10/02/2024 10/03/2024 0.9% NaCl injection 1-10 mL(Linked Group 1) 1-10 mL, Intracatheter, PRN, Other, peripheral line flush, Starting on Thu10/02/24 at 2028, Until Thu10/03/24 at 1055, Flush peripheral IV catheter with 1-10 mL of normal saline before and after medications and prn to clear blood from the line or to verify patency. Linked Groups Order Group 1: SALINE LOCK, INSERT AND MAINTAIN (CANCELED) Routine, CONTINUOUS, Starting on Thu10/02/24 at 2030, Until Specified, New collection, Task Completed: Yes And 0.9% NaCl injection 3 mLJump to med 3 mL, Intracatheter, EVERY 8 HOURS, First dose on Thu10/02/24 at 2200, Until Discontinued, Flush peripheral IV catheter with 3 mL of normal saline every 8 hours. And 0.9% NaCl injection 1-10 mLJump to med 1-10 mL, Intracatheter, PRN, Other, peripheral line flush, Starting on 10/02/24 at 2029, Until 10/03/24 at 1055, Flush peripheral IV catheter with 1-10 mL of normal saline before and after medications and prn to clear blood from the line or to verify patency. documented in this encounter Care Teams Static Balancer Relationship Specialty Start Date End Date Kartik Lunsford DO [address] [place] [phone] PCP - General Internal Medicine 10/30/23 documented as of this encounter
[2024-10-03 13:36] LABS: Ethanol < 10 mg/dL (<10)
--- NOTE | 2024-10-03 14:04 | ED.AMS ---
HPI - Altered Mental Status General Chief Complaint: Altered Mental Status Stated Complaint: AMS x 2 days, N/V Time Seen by Provider: 10/03/24 13:23 History of Present Illness HPI narrative: 64-year-old male with history of prior stroke, DVT on anticoagulation, hypertension, alcohol abuse. Patient presents to the emergency department with myalgias, chills, confusion not eating and drinking for 2 days. Patient feels weak. He states he is not drinking any alcohol in 2 days. Endorses worsening shakes as bilateral upper extremities and feeling tired. Denies any trauma or injury. States he drinks a 12 pack of beer per day and has tried to quit previously successfully. States he has been drinking for the last 6+ months after his . Denies any chest pain, shortness a breath, abdominal pain, back pain, melena. As a separate issue patient states he has been having a rash was bilateral ankles for several weeks that he would like to be evaluated for. Related Data Home Medications ?Medication ?Instructions ?Recorded ?Confirmed ?Last Taken ?Type brimonidine 0.1 % eye drops 1 drp EACH EYE Q8H 11/30/23 03/07/24 Unknown History Allergies Allergy/AdvReac Type Severity Reaction Status Date / Time No Known Allergies Allergy Verified 10/03/24 12:43 Review of Systems Review of Systems: As reviewed above in HPI [facility] Past Medical History Medical History Cognitive deficit due to recent stroke Hx of ischemic left MCA stroke Cataract, right eye Implantable loop recorder present Blood clot in leg History of retinal detachment Vision abnormalities Gait abnormality Hypertension Acute ischemic left MCA stroke Surgical History Surgical History Hx of appendectomy Family History Family History Father Heart problem Social History Social History Smoking status: Former smoker Tobacco type: cigarettes Alcohol intake: current Drinks per week: 7 Substance use: never Substance use type: does not use Do You Feel Safe in your Home?: Yes Lack of Transportation: No Lack of Food: Never True Current Housing: I Have Housing Concerned About Future Housing: No Difficulty Paying Gas/Electric Bills: No Difficulty Paying for Meds: No Currently Unemployed: No Education: High School Diploma/GED Difficulty w/ Childcare or Family Care: No Living arrangements: with family Occupation/Education: retired Gender identity (if verbalized by the patient): Male Spiritual care concerns: No Agree to blood products: Yes Exam Narrative: GENERAL: Uncomfortable appearing but not any acute distress, bilateral tremors in the arms. Awake alert oriented. HEAD: [Normocephalic, atraumatic.] EYES: [PERRLA and EOMI.] ENT: Nares clear, no rhinorrhea or epistaxis. Mucous membranes moist. Tongue fasciculations NECK: Supple. CHEST: [Clear to auscultation. No respiratory distress.] HEART: [Regular rate and rhythm]. No murmur heard. [Normal peripheral pulses.] ABDOMEN: [Soft, nondistended], [nontender], [No rigidity or guarding] EXTREMITIES: Normal range of motion. [No edema.] Bilateral ankles with well-circumscribed red lesions with surrounding scaling consistent with ringworm or other tinea infection does not involve the hands, hairline chest abdomen or pelvis/back SKIN: Warm, dry, no rash. NEURO: [No focal deficits]. Alert and oriented [x3.] Normal strength and sensation throughout, answering all questions appropriately. No ataxia. Bilateral tremor in arms as well as tongue fasciculations without facial asymmetry PSYCH: [Normal mood and affect.] Course Vital Signs Vital signs: Vital Signs Pulse Rate 99 10/03/24 12:37 Respiratory Rate 16 10/03/24 12:37 Blood Pressure 172/115 H 10/03/24 12:37 Pulse Oximetry 100 10/03/24 12:37 Oxygen Delivery Room Air 10/03/24 12:37 Pulse Rate 100 10/03/24 17:00 Respiratory Rate 16 10/03/24 17:00 Blood Pressure 142/71 H 10/03/24 17:00 Pulse Oximetry 98 10/03/24 17:00 Oxygen Delivery Room Air 10/03/24 12:37 MDM - Altered Mental Status MDM Narrative Medical decision making narrative: 64-year-old male with history of prior stroke with no residual deficits, DVT and anticoagulation. Hypertension and alcohol abuse history. He presents to the emergency department for nausea and vomiting as well as bilateral tremors shakes intermittent confusion for 2 days. States he has not been drinking alcohol in 2 days and trying to quit. Usually drinks a 12 pack of beer per day and ongoing for multiple months after his . Has had a history of alcohol abuse in the past and successfully quit without intervention. States he has a history of withdrawal. No trauma or injury. He is uncomfortable appearing but not any acute distress, has bilateral tremors in his arms and tongue fasciculations but no mental status changes, normal neurological assessment otherwise. Secondary complaint was also addressed in the has what appears to be ringworm or tinea pedis on bilateral lower extremities at the ankles. Laboratory studies were obtained, CT of the head was ordered, topical anti fungal applied to the feet and ankles. He was given a loading dose of 5 milligrams/kilogram phenobarbital for suspected alcohol withdrawal. Patient placed on environmental monitoring specialist and re-evaluated. Laboratory studies show no significant leukocytosis or anemia. Normal platelet count. Normal coagulation panel. Electrolytes showed no significant derangements. Mildly elevated anion gap likely from starvation ketosis, normal BUN and creatinine. Normal glucose. LFTs consistent with alcoholic liver disease. Urinalysis without signs of infection. Alcohol level is negative. Head CT without any acute intracranial findings. EKG shows sinus rhythm. Patient re-evaluated after phenobarbital load and his tremors and nauseousness and all his complaints had significantly improved. He felt much better at this time and would like to go home. Discussed continued alcohol withdrawal treatments at home including initiation of Librium taper. He was amenable to this and prescribed electronically with a taper course. He was also given clotrimazole for his fungal foot infection. Patient given return precautions and safe for discharge. Medical Records Attestation: I reviewed the patient's medical records. Lab Data Attestation: I reviewed the patient's lab results. 10/03/24 12:43 10/03/24 12:43 Labs: Lab Results 10/03/24 10/03/24 Range/Units 12:43 16:07 WBC 11.4 H (4.5-10.0) K/mm3 RBC 4.80 (4.6-6.20) M/mm3 Hgb 14.6 (14.0-18.0) g/dL Hct 42.6 (42.0-52.0) % MCV 88.8 (80-100) fl MCH 30.4 (26-34) pg MCHC 34.3 (32-36) g/dl RDW 13.9 (11.5-14.5) % Plt Count 203 D (150-375) k/mm3 MPV 9.1 (7.4-10.4) fl Immature Gran % (Auto) 0.3 (0-0.5) % Neut % (Auto) 72.4 (45.5-73.1) % Lymph % (Auto) 19.2 (18.3-44.2) % St[place]ard % (Auto) 6.5 (2.6-8.5) % Eos % (Auto) 1.0 (0-4.4) % Baso % (Auto) 0.6 (0.2-1.2) % Lymph # (Auto) 2.19 (0.9-3.2) K/mm3 Stoddard # (Auto) 0.7 H (0.1-0.6) K/mm3 Eos # (Auto) 0.1 (0-0.3) K/mm3 Baso # (Auto) 0.1 (0.0-0.1) K/mm3 Abs Immat Gran (auto) 0.04 H (0.00-0.031) K/mm3 Absolute Neuts (auto) 8.3 H (1.3-6.7) K/mm3 Absolute Nucleated RBC 0.000 (0.0-0.012) K/mm3 Nucleated RBC % 0.0 (0.0-0.2) % PT 14.2 (11.1-14.7) Seconds INR 1.1 APTT 29.7 (22.3-36.8) Seconds Sodium 132 L (137-145) mmol/L Potassium 4.4 (3.4-5.0) mmol/L Chloride 93 L (98-107) mmol/L Carbon Dioxide 22 (22-30) mmol/L Anion Gap 17 H (4-12) mmol/L BUN 6 L D (9-20) mg/dL Creatinine 0.51 L (0.7-1.3) mg/dL Estim Creat Clear Calc 103 ml/min Estimated GFR > 60 (59 - ) Glucose 140 H (65-110) mg/dL Calcium 9.2 (8.4-10.2) mg/dL Total Bilirubin 1.8 H (0.2-1.3) mg/dL AST 154 H (17-59) U/L ALT 160 H (6-50) U/L Alkaline Phosphatase 141 H (38-126) U/L Total Protein 8.7 H (6.3-8.2) g/dL Albumin 4.9 (3.5-5.1) g/dL Urine Color Yellow (Yellow) Urine Appearance Clear (Clear) Urine pH 6.5 (5.0-9.0) Ur Specific [place] 1.014 (1.001-1.035) Urine Protein 1+ H (Negative) mg/dL Urine Glucose (UA) Negative (Negative) mg/dL Urine Ketones 4+ H (Negative) mg/dL Ur Blood (Man) Negative (Negative) Urine Nitrate Negative (Negative) Urine Bilirubin Negative (Negative) Urine Urobilinogen 2.0 H (<2.0) mg/dL Leukocyte Esterase Rfl Negative (Negative) POPEYE/UL Urine RBC 0-2 (0-2) /hpf Urine WBC 0-5 (0-3) /hpf Ur Squamous Epith Cells None seen (Few) /hpf Urine Bacteria None seen /hpf Urine Casts 0-2 Ethyl Alcohol < 10 (<10) mg/dL Imaging Data Attestation: I personally reviewed and interpreted this imaging study as follows: My impression: Impressions Head CT 10/03/24 13:47 IMPRESSION: No acute intracranial findings. Discharge Plan Discharge Clinical Impression: Alcohol withdrawal, Fungal infection of foot, Alcoholic liver disease Patient Disposition: Home Condition: Stable Instructions: Antibiotic Form, Alcohol Withdrawal (DC) Additional Instructions: Your symptoms are consistent with alcohol withdrawal. We have treated this here in the emergency department and you feel better. We will send you home with the medication that you can take for continued symptomatic relief of alcohol withdrawal at home. Do not take this medication and drink alcohol at the same time. Return with any worsening or emergent concerns, your rash on your feet is likely from a fungal infection which we will treat with a topical antifungal agent. Return with any problems otherwise follow-up with your doctor. Patient Language: French Prescriptions: New chlordiazepoxide HCl 25 mg capsule See Rx Instructions .Route .COMPLEX Qty: 20 0RF Rx Instructions: 50mg of chlordiazepoxide every 8 hours for two days, then decrease to 25mg every 8 hours for another two days followed by 25mg as needed clotrimazole [Antifungal (clotrimazole)] 1 % cream 1 applic topical BID 28 Days Qty: 30 0RF No Action brimonidine 0.1 % drops 1 drp EACH EYE Q8H losartan 25 mg tablet 25 mg PO DAILY Qty: 30 1RF atorvastatin 40 mg Tablet 40 mg PO HS Qty: 30 0RF amlodipine [Norvasc] 5 mg Tablet 5 mg PO DAILY 30 Days Qty: 30 0RF timolol maleate 0.5 % Drops 1 drp EACH EYE BID Qty: 30 0RF Eliquis 5 mg Tablet 5 mg PO BID Qty: 60 0RF Follow-up/Referrals: Kartik Lunsford DO [Primary Care Provider] - Time of Disposition: 16:47
--- NOTE | 2024-10-03 14:07 | PC.NURSE ---
Pt long Hale [phone]
--- OUTSIDE RECORDS SUMMARY | 2024-10-03 14:26 | XMS_ITS | Clinical Summary ---
Author Organization [facility] Address [address] [place] [address] Care Team Providers Care Personal Driver Name Role Phone Kartik Lunsford DO Primary Care Provider [phone] Source Comments [facility],non-owned Affiliates and Associated Physician Practices is amultiple site organization consisting of ambulatory clinics and hospital sitesin [place], [place], [place] and [place]. This disclosure is being madepursuant to the Care Everywhere program and may not contain all information available regarding this patient. Last updated 18.[facility] Allergies No known active allergies Medications * [...] CDT - 10/03/2024 9:55 AM CDT Emergency [facility] [address] [place] [address] Discharge Disposition: Left Against Medical Advice/Discontinued Care 10/02/2024 Travel 09/08/2024 1:10 AM CDT Clinical Support [facility] - Cardiology [address] [place] [phone] PFO (patent foramen ovale) (HCC) ; Acute ischemic stroke (HCC); Status post placement of implantable loop recorder 08/04/2024 1:00 AM CDT Clinical Support [facility] - Cardiology [address] [place] [phone] PFO (patent foramen ovale) (HCC) ; Acute [...] Recorded Patient Health Questionnaire-2 Score 0 09/22/2023 [facility] ional [facility] - [...] place to sleep or slept in a fdc (including now)? No 09/17/2023 Sex and Gender Information Value Date Recorded Sex Assigned at Not on file Legal Sex Male 1:58 PM DIRECTOR DESIGN Gender Identity Not on file Sexual Orientation [...] [facility] - [facility]iology [address], [address] [phone] 11/17/2024 1:00 AM CDT Clinical Support [facility] - Cardiology [address], [address] [phone] 12/22/2024 1:00 AM CDT Clinical Support [facility] - Cardiology [address], [address] [phone] 01/26/2025 1:00 AM CDT Clinical Support [facility] - Cardiology [address], [address] [address] 03/02/2025 1:00 AM DIRECTOR DESIGN Clinical Support [facility] - Cardiology [address], [address] [phone] 04/06/2025 1:00 AM DIRECTOR DESIGN Clinical Support [facility] - Cardiology [address], [address] [address] Health Maintenance Due Date Last Done Comments [...] this topic Medical Devices Implanted Type Area Ship Engines Operating Engineer Device Identifier Shelf Expiration Date Model / Serial / Lot Sys Crd Mntr Rvl Linq Ii - [id number] Implanted:Qty: 1 on 09/21/2023 by Rebekah Dhillon MD at [facility] [id number] 08/05/2024 [id number] SYS / [id number] Oclr Cv 25mm Spt Sft Wire [facility] Img - [id number] Implanted:Qty: 1 on 06/06/2024 by Charlette Scruggs MD at [facility] [employer] [id number] 09/20/2025 [id number] / [id number] / [id number] Procedures Procedure Name Priority Date/Time Associated Diagnosis Comments ERYTHROCYTE SEDIMENTATION RATE STAT 10/02/2024 9:05 PM CDT C-REACTIVE PROTEIN MELO 10/02/2024 9: 05 PM CDT COMPREHENSIVE METABOLIC PANEL STAT 10/02/2024 9:05 PM CDT CBC W AUTO DIFFERENTIAL STAT 10/02/2024 9:05 PM CDT [place] ILR DEVICE INTERROGAT REMOTE Routine 09/24/2024 10:12 AM CDT PFO (patent foramen ovale) (HCC) Acute ischemic stroke (HCC) Status post placement of implantable loop recorder CARDIAC PROCEDURE ORDER 09/07/2024 [place] ILR DEVICE INTERROGAT REMOTE Routine 08/06/2024 2:19 PM CDT PFO (patent foramen ovale) (HCC) Acute ischemic stroke (HCC) CARDIAC PROCEDURE ORDER 08/03/2024 [place] ILR DEVICE INTERROGAT REMOTE Routine 07/11/2024 7:12 AM CDT PFO (patent foramen ovale) Acute ischemic stroke from Last 3 Months Results * C-REACTIVE PROTEIN (10/02/2024 9:05 PM CDT) C-Reactive Protein <0.5 <=0.5 mg/dL 10/02/2024 9:42 PM CDT [facility] Blood BLOOD SPECIMEN / Unknown Venipuncture / Unknown 10/02/2024 9:05 PM CDT 10/02/2024 9:10 PM CDT us Odalis Miramontes PA-C LAB - CHEMISTRY ORDERABLES Josephine lnyne Result [facility] [address] [place] [address], [facility] [phone] * ERYTHROCYTE SEDIMENTATION RATE (10/02/2024 9:05 PM CDT) Erythrocyte Sedimentation Rate Westergren 9 0 - 20 MM/HR 10/02/2024 9:31 PM [facility] Blood BLOOD SPECIMEN / Unknown Venipuncture / Unknown 10/02/2024 9:05 PM CDT 10/02/2024 9:10 PM CDT us Odalis Miramontes PA-C LAB - HEMATOLOGY ORDERABLES Fin al Result [facility] [address] [place] [address], [facility] [phone] * (ABNORMAL) CBC W AUTO DIFFERENTIAL (10/02/2024 9:05 PM CDT) WBC 10.6 4.0 - 10.7 x10E9/L 10/02/2024 9:21 PM [facility] RBC Count 4.85 4.30 - 5.80 x10E12/L 10/02/2024 9:21 PM [facility] Hemoglobin 14.6 13.3 - 17.5 g/dL 10/02/2024 9:21 PM [facility] Hematocrit 41.1 38.7 - 51.1 % 10/02/2024 9:21 PM [facility] MCV 84.7 80.0 - 98.0 fL 10/02/2024 9:21 PM [facility] MCH 30.1 26.7 - 33.6 pg 10/02/2024 9:21 PM [facility] MCHC 35.5 31.7 - 36.3 g/dL 10/02/2024 9:21 PM [facility] RDW-CV 13.7 11.3 - 14.8 % 10/02/2024 9:21 PM [facility] Platelet Count 219 150 - 420 x10E9/L 10/02/2024 9:21 PM [facility] MPV 9.1 7.8 - 11.4 fL 10/02/2024 9:21 PM [facility] Neutrophil % 57.4 41.0 - 74.0 % 10/02/2024 9:21 PM [facility] Lymphocyte % 25.6 17.0 - 47.0 % 10/02/2024 9:21 PM [facility] Monocyte % 11.8(H) 3.0 - 11.0 % 10/02/2024 9:21 PM [facility] Eosinophil % 4.2 0.0 - 7.0 % 10/02/2024 9:21 PM [facility] Basophil % 0.8 0.0 - 1.6 % 10/02/2024 9:21 PM [facility] Immature Granulocytes % 0.2 0.0 - 1.0 % 10/02/2024 9:21 PM [facility] Neutrophil Absolute 6.10 1.60 - 7.50 x10E9/L 10/02/2024 9:21 PM [facility] Lymphocyte Absolute 2.71 1.00 - 4.40 x10E9/L 10/02/2024 9:21 PM [facility] Monocyte Absolute 1.25(H) 0.15 - 1.00 x10E9/L 10/02/2024 9:21 PM [facility] Eosinophil Absolute 0.44 0.00 - 0.60 x10E9/L 10/02/2024 9:21 PM [facility] Basophil Absolute 0.08 0.00 - 0.13 x10E9/L 10/02/2024 9:21 PM [facility] Blood BLOOD SPECIMEN / Unknown Venipuncture / Unknown 10/02/2024 9:05 PM CDT 10/02/2024 9:10 PM CDT us Odalis Miramontes PA-C LAB - HEMATOLOGY ORDERABLES Fin al Result [facility] [address] [place] [address], [facility] [phone] * (ABNORMAL) COMPREHENSIVE METABOLIC PANEL (10/02/2024 9:05 PM CDT) BUN <5(L) 7 - 26 mg/dL 10/02/2024 9:41 PM [facility] Creatinine 0.56(L) 0.71 - 1.16 mg/dL 10/02/2024 9:41 PM [facility] Sodium 131(L) 136 - 145 mmol/L 10/02/2024 9:41 PM [facility] Potassium 4.3 3.5 - 4.5 mmol/L 10/02/2024 9:41 PM [facility] Chloride 96(L) 98 - 107 mmol/L 10/02/2024 9:41 PM [facility] CO2 25 22 - 29 mmol/L 10/02/2024 9:41 PM [facility] Glucose 122(H) 70 - 99 mg/dL 10/02/2024 9:41 PM [facility] Calcium 9.0 8.4 - 10.2 mg/dL 10/02/2024 9:41 PM [facility] Protein Total 8.0 6.0 - 8.3 g/dL 10/02/2024 9:41 PM [facility] Albumin 4.6 3.4 - 5.0 g/dL 10/02/2024 9:41 PM [facility] Bilirubin Total 1.0 0.2 - 1.2 mg/dL 10/02/2024 9:41 PM [facility] Alkaline Phosphatase 110 40 - 150 U/L 10/02/2024 9:41 PM [facility] ALT 157(H) 5 - 55 U/L 10/02/2024 9:41 PM [facility] AST 178(H) 5 - 34 U/L 10/02/2024 9:41 PM [facility] Anion Gap 10 6 - 16 10/02/2024 9:41 PM [facility] BUN/Creatinine Ratio <9 7 - 23 10/02/2024 9:41 PM [facility] Osmolality Calculated <271(L) 275 - 295 mOsm/kg 10/02/2024 9:41 PM [facility] Albumin/Globulin Ratio 1.4 1.1 - 2.3 10/02/2024 9:41 PM CDT [facility] eGFR by CKD-EPI >90 >=90 mL/min/1.7 3 m2 10/02/2024 9:41 PM CDT [facility] Blood BLOOD SPECIMEN / Unknown Venipuncture / Unknown 10/02/2024 9:05 PM CDT 10/02/2024 9:10 PM CDT Narrative [facility] - 10/02/2024 9:41 PM CDT Estimated Glomerular Filtration Rate (eGFR) calculated using the CKD-EPI Creatinine Equation (2020), per the National Kidney Foundation and [place] [employer] Nephrology recommendations. us Odalis Miramontes PA-C LAB - CHEMISTRY ORDERABLES Josephine batista Result [facility] [address] [place] [address], [facility] [phone] * [place] ILR DEVICE INTERROGAT REMOTE (09/24/2024 10:12 AM [...] CARDIAC SERVICES ORDERABLES Fin al Result * [place] ILR DEVICE INTERROGAT REMOTE (08/06/2024 2:19 PM CDT) Destiny May MD - 08/06/2024 2:19 PM CDT Destiny Sheehan MD 08/08/2024 12:02 PM Remote Interrogation: Pertinent Findings: Device function within normal limits. Afib burden 1.9%. On OAC. Destiny Sheehan MD Cardiac Electrophysiology Destiny Sheehan MD PROCEDURE/MINOR SURGICAL ORDERAB LES Final Result * [place] ILR DEVICE INTERROGAT REMOTE (07/11/2024 7:12 AM [...] Final Result from Last 3 Months Insurance [facility] MEDICARE ADV PPO Advance Directives * Full Code (Latest Code Status on File) Date Activated Date Inactivated Comments 06/06/2024 11:27 AM 06/06/2024 5:05 PM * Full Code Date Activated Date Inactivated Comments 09/17/2023 1:06 PM 09/23/2023 10:32 PM Care Teams Personal Driver Relationship Specialty Start Date End Date Kartik Lunsford DO [address] [place] [phone] PCP - General Internal Medicine 10/30/23
--- OUTSIDE RECORDS SUMMARY | 2024-10-03 14:26 | XMS_ITS | Encounter Summary ---
Author Organization [facility] Address [address] [place] [address] Care Team Providers Care Floor Tiling Professional Name Role Phone Kartik Lunsford DO Primary Care Provider [phone] Encounter Details Date Type Department Care Team [...] Recorded Patient Health Questionnaire-2 Score 0 09/22/2023 [facility] Occup[facility] ional Health - Occupational Stress [...] place to sleep or slept in a half-way (including now)? No 09/17/2023 Sex and Gender Information Value Date Recorded Sex Assigned at Not on file Legal Sex Male 1:58 PM DELIVERY LEAD Gender Identity Not on file Sexual Orientation [...] Entry Date Author No 06/06/2024 11:16 AM DELIVERY LEAD Bowles RN documented in this encounter Plan of Treatment Upcoming Encounters Date Type Department Care Team (Late st Contact Info) Description 10/13/2024 1:10 AM CDT Clinical Support [facility] - Cardiology [address], [place] [address] [place] [phone] 11/17/2024 1:00 AM CDT Clinical Support [facility] - Cardiology [address], [place] [address] [place] [phone] 12/22/2024 1:00 AM CDT Clinical Support [facility] - Cardiology [address], [place] [address] [place] [phone] 01/26/2025 1:00 AM CDT Clinical Support [facility] - Cardiology [address], [address] [phone] 03/02/2025 1:00 AM DELIVERY LEAD Clinical Support [facility] - Cardiology [address], [place] [address] [place] [phone] 04/06/2025 1:00 AM DELIVERY LEAD Clinical Support [facility] - Cardiology [address], [place] [address] [place] [phone] documented as of this encounter Visit Diagnoses Not on filedocumented in this encounter Care Teams Floor Tiling Professional Relationship Specialty Start Date End Date Kartik Lunsford DO [address] [place] [phone] PCP - General Internal Medicine 10/30/23 documented as of this encounter
--- OUTSIDE RECORDS SUMMARY | 2024-10-03 14:26 | XMS_ITS | Encounter Summary ---
Author Organization [facility] Address [address] [facility] [place] [address] Care Team Providers Care Army Helicopter Pilot Name Role Phone Kartik Lunsford DO Primary Care Provider [phone] Reason for Visit * Reason Comments Lower Extremity Problem Pt stated that juancarlos mckeon has a fungal infection to right ankle x 2 months. Pt denies musa, denies itching to area of concern. Encounter Details Date Type Department Care Team (Late st Contact Info) Description 10/03/2024 9:25 AM CDT - 10/03/2024 9:55 AM CDT Emergency [facility] EMERGENCY DEPARTMENT [address] [place] [phone] Discharge Disposition: Left Against Medical Advice/Discontinued Care [...] Recorded Patient Health Questionnaire-2 Score 0 09/22/2023 [facility] of Occupat ional [facility] - Occupational Stress Questionnaire Answer Date Recorded [...] place to sleep or slept in a fci (including now)? 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 Patient [...] [facility] [address] [facility], [address] [address] 11/17/2024 1:00 AM CDT Clinical Support [facility] - Cardiology [address] [facility], [address] [address] 12/22/2024 1:00 AM CDT Clinical Support [facility] - Cardiology [address] [facility], [address] [address] 01/26/2025 1:00 AM CDT Clinical Support [facility] [address] [facility], [address] [address] 03/02/2025 1:00 AM DOCUMENT MANAGEMENT ANALYST Clinical Support [facility] - Cardiology [address] [facility], [address] [address] 04/06/2025 1:00 AM DOCUMENT MANAGEMENT ANALYST Clinical Support [facility] - Cardiology [address] [facility], [address] [address] documented as of this encounter Procedures Procedure [...] - 20 MM/HR 10/02/2024 9:31 PM CDT [facility] Blood BLOOD SPECIMEN / Unknown Venipuncture / Unknown 10/02/2024 9:05 PM CDT 10/02/2024 9:10 PM CDT Odalis Miramontes PA-C LAB - HEMATOLOGY ORDERABLES Fin al Result Performing Organization Address City/[facility]/ZIP Co de Phone Number [address] [address], [place] [phone] * C-REACTIVE PROTEIN (10/02/2024 9:05 PM CDT) C-Reactive Protein <0.5 <=0.5 mg/dL 10/02/2024 9:42 PM CDT [facility] Blood BLOOD SPECIMEN / Unknown Venipuncture / Unknown 10/02/2024 9:05 PM CDT 10/02/2024 9:10 PM CDT Odalis Miramontes PA-C LAB - CHEMISTRY ORDERABLES Josephine l Result Performing Organization Address City/[facility]/ZIP Co de Phone Number [address] [phone], [place] [phone] * (ABNORMAL) COMPREHENSIVE METABOLIC PANEL (10/02/2024 9:05 PM [facility]) BUN <5(L) 7 - 26 mg/dL 10/02/2024 9:41 PM [facility] Creatinine 0.56(L) 0.71 - 1.16 mg/dL 10/02/2024 9:41 PM [facility] Sodium 131(L) 136 - 145 mmol/L 10/02/2024 9:41 PM [facility] Potassium 4.3 3.5 - 4.5 mmol/L 10/02/2024 9:41 PM [facility] Chloride 96(L) 98 - 107 mmol/L 10/02/2024 9:41 PM [facility] CO2 25 22 - 29 mmol/L 10/02/2024 9:41 PM [facility] Glucose 122(H) 70 - 99 mg/dL 10/02/2024 9:41 PM [facility] Calcium 9.0 8.4 - 10.2 mg/dL 10/02/2024 9:41 PM [facility] Protein Total 8.0 6.0 - 8.3 g/dL 10/02/2024 9:41 PM [facility] Albumin 4.6 3.4 - 5.0 g/dL 10/02/2024 9:41 PM [facility] Bilirubin Total 1.0 0.2 - 1.2 mg/dL 10/02/2024 9:41 PM [facility] Alkaline Phosphatase 110 40 - 150 U/L 10/02/2024 9:41 PM [facility] ALT 157(H) 5 - 55 U/L 10/02/2024 9:41 PM [facility] AST 178(H) 5 - 34 U/L 10/02/2024 9:41 PM [facility] Anion Gap 10 6 - 16 10/02/2024 9:41 PM [facility] BUN/Creatinine Ratio <9 7 - 23 10/02/2024 9:41 PM [facility] Osmolality Calculated <271(L) 275 - 295 mOsm/kg 10/02/2024 9:41 PM [facility] Albumin/Globulin Ratio 1.4 1.1 - 2.3 10/02/2024 9:41 PM [facility] eGFR by CKD-EPI >90 >=90 mL/min/1.7 3 m2 10/02/2024 9:41 PM [facility] Blood BLOOD SPECIMEN / Unknown Venipuncture / Unknown 10/02/2024 9:05 PM CDT 10/02/2024 9:10 PM CDT [facility] - 10/02/2024 9:41 PM CDT Estimated Glomerular Filtration Rate (eGFR) calculated using the CKD-EPI Creatinine Equation (2020), per the National Kidney Foundation and [place] Society of Nephrology recommendations. Odalis Miramontes PA-C LAB - CHEMISTRY ORDERABLES Josephine batista Result [facility] [address] [place] [address], [place] [phone] * (ABNORMAL) CBC W AUTO DIFFERENTIAL (10/02/2024 9:05 PM T) WBC 10.6 4.0 - 10.7 x10E9/L 10/02/2024 9:21 PM [facility] RBC Count 4.85 4.30 - 5.80 x10E12/L 10/02/2024 9:21 PM [facility] Hemoglobin 14.6 13.3 - 17.5 g/dL 10/02/2024 9:21 PM [facility] Hematocrit 41.1 38.7 - 51.1 % 10/02/2024 9:21 PM [facility] MCV 84.7 80.0 - 98.0 fL 10/02/2024 9:21 PM [facility] MCH 30.1 26.7 - 33.6 pg 10/02/2024 9:21 PM [facility] MCHC 35.5 31.7 - 36.3 g/dL 10/02/2024 9:21 PM [facility] RDW-CV 13.7 11.3 - 14.8 % 10/02/2024 9:21 PM [facility] Platelet Count 219 150 - 420 x10E9/L 10/02/2024 9:21 PM [facility] MPV 9.1 7.8 - 11.4 fL 10/02/2024 9:21 PM [facility] Neutrophil % 57.4 41.0 - 74.0 % 10/02/2024 9:21 PM [facility] Lymphocyte % 25.6 17.0 - 47.0 % 10/02/2024 9:21 PM [facility] Monocyte % 11.8(H) 3.0 - 11.0 % 10/02/2024 9:21 PM [facility] Eosinophil % 4.2 0.0 - 7.0 % 10/02/2024 9:21 PM [facility] Basophil % 0.8 0.0 - 1.6 % 10/02/2024 9:21 PM [facility] Immature Granulocytes % 0.2 0.0 - 1.0 % 10/02/2024 9:21 PM [facility] Neutrophil Absolute 6.10 1.60 - 7.50 x10E9/L 10/02/2024 9:21 PM [facility] Lymphocyte Absolute 2.71 1.00 - 4.40 x10E9/L 10/02/2024 9:21 PM [facility] Monocyte Absolute 1.25(H) 0.15 - 1.00 x10E9/L 10/02/2024 9:21 PM [facility] Eosinophil Absolute 0.44 0.00 - 0.60 x10E9/L 10/02/2024 9:21 PM [facility] Basophil Absolute 0.08 0.00 - 0.13 x10E9/L 10/02/2024 9:21 PM [facility] Blood BLOOD SPECIMEN / Unknown Venipuncture / Unknown 10/02/2024 9:05 PM CDT 10/02/2024 9:10 PM [facility] us Odalis Miramontes PA-C LAB - HEMATOLOGY ORDERABLES Fin al Result [facility] [address] [address], [place] [phone] documented in this encounter Visit Diagnoses Not [...] patency. documented in this encounter Care Teams Army Helicopter Pilot Relationship Specialty Start Date End Date Kartik Lunsford DO [address] [place] [phone] PCP - General Internal Medicine 10/30/23 documented as of this encounter
[2024-10-03] MEDS: MICONAZOLE NITRATE 2% CREAM 30 GM TUBE 1 APPLIC TOPICAL (14:31)
[2024-10-03] MEDS: PHENobarbitaL sodium (*CRX) 130 MG/ML VIAL 390 MG IV PUSH (14:31)
--- NOTE | 2024-10-03 14:40 | PC.NURSE ---
Unable to urinate. Refuses straight cath.
[2024-10-03 16:30] LABS: Add Urine Microscopic? YES; Appearance Urine Clear (Clear); Bacteria Urine None Seen /hpf; Bilirubin Urine Negative (Negative); Blood Urine Negative (Negative); Color Urine Yellow (Yellow); Glucose Urine UA Negative (Negative); Ketones Urine 4+ mg/dL (Negative); Leukocyte Esterase Ur Negative LEU/UL (Negative); Nitrate Urine Negative (Negative); Non Pathogenic Casts 0-2; Protein Urine 1+ mg/dL (Negative); RBC Urine 0-2 /hpf (0-2); Specific Grav Ur 1.014 (1.001-1.035); Squamous Epithelial Cell Urine None Seen /hpf (Few); WBC Urine 0-5 /hpf (0-3); pH Urine 6.5 (5.0-9.0)
== END 2024-10-03 17:02 | disposition home or self-care (01) ==
PROVIDERS: Emergency Medicine; Emergency Provider Student in an Organized Health Care Education/Training Program; PCP Internal Medicine
DX: F10.939 Alcohol use, unspecified with withdrawal, unspecified (principal); B35.3 Tinea pedis; K70.9 Alcoholic liver disease, unspecified; Y90.0 Blood alcohol level of less than 20 mg/100 ml; I10 Essential (primary) hypertension; Z86.718 Personal history of other venous thrombosis and embolism; Z86.73 Personal history of transient ischemic attack (TIA), and cerebral infarction without residual deficits
CPT/HCPCS: 36415; 70450; 80053; 81001; 82077; 85025; 85610; 85730; 93005; 96374; 99284; A9270; J2560

== ENCOUNTER 2024-10-20 10:21 | Outpatient (CLI) | payer OTHER, SELFPAY ==
--- OUTSIDE RECORDS SUMMARY | 2024-10-20 10:28 | XMS_ITS | Clinical Summary ---
Author Organization [facility] Address [address] [place] [address] Care Team Providers Care Brick Sorter Name Role Phone Kartik Lunsford DO Primary Care Provider [phone] Source Comments [facility],non-owned Affiliates and Associated Physician Practices is amultiple site organization consisting of ambulatory clinics and hospital sitesin [place], [place], [place] and [place]. This disclosure is being madepursuant to the Care Everywhere program and may not contain all information available regarding this patient. Last updated 18.[facility] Allergies No known active allergies Medications * [...] for further need. 180 tablet 3 05/02/19 25 Active Active Problems Problem Noted Date Diagnosed [...] Encounters Date Type Department Care Team Description 10/02/2024 8:04 PM CDT - 10/03/2024 9:55 AM CDT Emergency [facility]ERG[facility]Y DEPART[facility] [address] [place] [address] Discharge Disposition: Left Against Medical Advice/Discontinued Care 10/02/2024 Travel 09/08/2024 1:10 AM CDT Clinical Support [facility] - Cardiology [address] [place] [phone] PFO (patent foramen ovale) (HCC) ; Acute ischemic stroke (HCC); Status post placement of implantable loop recorder 08/04/2024 1:00 AM CDT Clinical Support [facility] - Cardiology [address] [place] [phone] PFO (patent foramen ovale) (HCC) ; Acute [...] Recorded Patient Health Questionnaire-2 Score 0 09/22/2023 [facility] of Occupat ional Health - [...] place to sleep or slept in a alf (including now)? 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 Gender Identity Not on file Sexual Orientation [...] Care Team (Late st Contact Info) Description 11/17/2024 1:00 AM CDT Clinical Support [facility] - Cardiology [address], [address] [address] 12/22/2024 1:00 AM CDT Clinical Support [facility] Cardiology [address] [facility], [address] [address] 01/26/2025 1:00 AM CDT Clinical Support [facility]iology [address] [facility], [address] [address] 03/02/2025 1:00 AM EXTENDED DAY TEACHER Clinical Support [facility] - Cardiology [address] [facility], [address] [address] 04/06/2025 1:00 AM EXTENDED DAY TEACHER Clinical Support [facility] - Cardiology [address], [address] [address] Health Maintenance Due Date Last Done Comments [...] this topic Medical Devices Implanted Type Area Historical Site Guide Device Identifier Shelf Expiration Date Model / Serial / Lot Sys Crd Mntr Rvl Linq Ii - [id number] Implanted:Qty: 1 on 09/21/2023 by Rebekah Dhillon MD at [facility] [id number] 08/05/2024 [id number] SYS / [id number] [employer] Cv 25mm Spt Sft Wire [facility] - [id number] Implanted:Qty: 1 on 06/06/2024 by Charlette Scruggs MD at [facility] [employer] [id number] 09/20/2025 [id number] / [id number] / [id number] Procedures Procedure Name Priority Date/Time Associated Diagnosis Comments ERYTHROCYTE SEDIMENTATION RATE STAT 10/02/2024 9:05 PM CDT C-REACTIVE PROTEIN MELO 10/02/2024 9: 05 PM CDT COMPREHENSIVE METABOLIC PANEL STAT 10/02/2024 9:05 PM CDT CBC W AUTO DIFFERENTIAL STAT 10/02/2024 9:05 PM CDT CO ILR DEVICE INTERROGAT REMOTE Routine 09/24/2024 10:12 AM CDT PFO (patent foramen ovale) (HCC) Acute ischemic stroke (HCC) Status post placement of implantable loop recorder CARDIAC PROCEDURE ORDER 09/07/2024 CO ILR DEVICE INTERROGAT REMOTE Routine 08/06/2024 2:19 PM CDT PFO (patent foramen ovale) (HCC) Acute ischemic stroke (HCC) CARDIAC PROCEDURE ORDER 08/03/2024 from Last 3 Months Results * C-REACTIVE PROTEIN (10/02/2024 9:05 PM CDT) C-Reactive Protein <0.5 <=0.5 mg/dL 10/02/2024 9:42 PM CDT [facility] Blood BLOOD SPECIMEN / Unknown Venipuncture / Unknown 10/02/2024 9:05 PM CDT 10/02/2024 9:10 PM CDT Odalis Miramontes PA-C LAB - CHEMISTRY ORDERABLES Josephine l Result [address] [address], [facility] [phone] * ERYTHROCYTE SEDIMENTATION RATE (10/02/2024 9:05 PM CDT) Erythrocyte Sedimentation Rate Westergren 9 0 - 20 MM/HR 10/02/2024 9:31 PM CDT [facility] Blood BLOOD SPECIMEN / Unknown Venipuncture / Unknown 10/02/2024 9:05 PM CDT 10/02/2024 9:10 PM CDT Odalis Miramontes PA-C LAB - HEMATOLOGY ORDERABLES Fin al Result [facility] [address] [place] [address], [facility] [phone] * (ABNORMAL) CBC W AUTO DIFFERENTIAL (10/02/2024 9:05 PM CDT) WBC 10.6 4.0 - 10.7 x10E9/L 10/02/2024 9:21 PM [facility] RBC Count 4.85 4.30 - 5.80 x10E12/L 10/02/2024 9:21 PM [facility] Hemoglobin 14.6 13.3 - 17.5 g/dL 10/02/2024 9:21 PM [facility] Hematocrit 41.1 38.7 - 51.1 % 10/02/2024 9:21 PM [facility] MCV 84.7 80.0 - 98.0 fL 10/02/2024 9:21 PM [facility] MCH 30.1 26.7 - 33.6 pg 10/02/2024 9:21 PM [facility] MCHC 35.5 31.7 - 36.3 g/dL 10/02/2024 9:21 PM [facility] RDW-CV 13.7 11.3 - 14.8 % 10/02/2024 9:21 PM [facility] Platelet Count 219 150 - 420 x10E9/L 10/02/2024 9:21 PM [facility] MPV 9.1 7.8 - 11.4 fL 10/02/2024 9:21 PM [facility] Neutrophil % 57.4 41.0 - 74.0 % 10/02/2024 9:21 PM [facility] Lymphocyte % 25.6 17.0 - 47.0 % 10/02/2024 9:21 PM [facility] Monocyte % 11.8(H) 3.0 - 11.0 % 10/02/2024 9:21 PM [facility] Eosinophil % 4.2 0.0 - 7.0 % 10/02/2024 9:21 PM [facility] Basophil % 0.8 0.0 - 1.6 % 10/02/2024 9:21 PM [facility] Immature Granulocytes % 0.2 0.0 - 1.0 % 10/02/2024 9:21 PM [facility] Neutrophil Absolute 6.10 1.60 - 7.50 x10E9/L 10/02/2024 9:21 PM [facility] Lymphocyte Absolute 2.71 1.00 - 4.40 x10E9/L 10/02/2024 9:21 PM [facility] Monocyte Absolute 1.25(H) 0.15 - 1.00 x10E9/L 10/02/2024 9:21 PM [facility] Eosinophil Absolute 0.44 0.00 - 0.60 x10E9/L 10/02/2024 9:21 PM [facility] Basophil Absolute 0.08 0.00 - 0.13 x10E9/L 10/02/2024 9:21 PM [facility] Blood BLOOD SPECIMEN / Unknown Venipuncture / Unknown 10/02/2024 9:05 PM CDT 10/02/2024 9:10 PM CDT us Odalis Miramontes PA-C LAB - HEMATOLOGY ORDERABLES Fin al Result [address] [address], [facility] [phone] * (ABNORMAL) COMPREHENSIVE METABOLIC PANEL (10/02/2024 9:05 PM CDT) BUN <5(L) 7 - 26 mg/dL 10/02/2024 9:41 PM [facility] Creatinine 0.56(L) 0.71 - 1.16 mg/dL 10/02/2024 9:41 PM [facility] Sodium 131(L) 136 - 145 mmol/L 10/02/2024 9:41 PM [facility] Potassium 4.3 3.5 - 4.5 mmol/L 10/02/2024 9:41 PM [facility] Chloride 96(L) 98 - 107 mmol/L 10/02/2024 9:41 PM [facility] CO2 25 22 - 29 mmol/L 10/02/2024 9:41 PM [facility] Glucose 122(H) 70 - 99 mg/dL 10/02/2024 9:41 PM [facility] Calcium 9.0 8.4 - 10.2 mg/dL 10/02/2024 9:41 PM [facility] Protein Total 8.0 6.0 - 8.3 g/dL 10/02/2024 9:41 PM [facility] Albumin 4.6 3.4 - 5.0 g/dL 10/02/2024 9:41 PM [facility] Bilirubin Total 1.0 0.2 - 1.2 mg/dL 10/02/2024 9:41 PM [facility] Alkaline Phosphatase 110 40 - 150 U/L 10/02/2024 9:41 PM [facility] ALT 157(H) 5 - 55 U/L 10/02/2024 9:41 PM [facility] AST 178(H) 5 - 34 U/L 10/02/2024 9:41 PM [facility] Anion Gap 10 6 - 16 10/02/2024 9:41 PM [facility] BUN/Creatinine Ratio <9 7 - 23 10/02/2024 9:41 PM [facility] Osmolality Calculated <271(L) 275 - 295 mOsm/kg 10/02/2024 9:41 PM [facility] Albumin/Globulin Ratio 1.4 1.1 - 2.3 10/02/2024 9:41 PM [facility] eGFR by CKD-EPI >90 >=90 mL/min/1.7 3 m2 10/02/2024 9:41 PM [facility] Blood BLOOD SPECIMEN / Unknown Venipuncture / Unknown 10/02/2024 9:05 PM [facility] 10/02/2024 9:10 PM CDT Narrative [facility] - 10/02/2024 9:41 PM CDT Estimated Glomerular Filtration Rate (eGFR) calculated using the CKD-EPI Creatinine Equation (2020), per the National Kidney Foundation and [place] [employer] of Nephrology recommendations. us Odalis Miramontes PA-C LAB - CHEMISTRY ORDERABLES Josephine l Result [facility] [address] [place] [address], [facility] [phone] * CO ILR DEVICE INTERROGAT REMOTE (09/24/2024 10:12 AM [...] CARDIAC SERVICES ORDERABLES Fin al Result * CO ILR DEVICE INTERROGAT REMOTE (08/06/2024 2:19 PM CDT) Narrative Destiny Sheehan MD - 08/06/2024 2:19 PM CDT Destiny Sheehan MD 08/08/2024 12:02 PM Remote Interrogation: Pertinent Findings: Device function within normal limits. Afib burden 1.9%. On OAC. Destiny Sheehan MD Cardiac Electrophysiology us Destiny Sheehan MD PROCEDURE/MINOR SURGICAL ORDERAB LES Final Result from Last 3 Months Insurance [facility] MEDICARE ADV PPO Advance Directives * Full Code (Latest Code Status on File) Date Activated Date Inactivated Comments 06/06/2024 11:27 AM 06/06/2024 5:05 PM * Full Code Date Activated Date Inactivated Comments 09/17/2023 1:06 PM 09/23/2023 10:32 PM Care Teams Brick Sorter Relationship Specialty Start Date End Date Kartik Lunsford DO [address] [place] [phone] PCP - General Internal Medicine 10/30/23
[2024-10-20 12:49] LABS: Hematocrit 39.2 % (42.0-52.0); Hemoglobin 13.0 g/dL (14.0-18.0); Immature Granulocyte Percent A 0.4 % (0-0.5); Lymphocytes Absolute Auto 2.64 K/mm3 (0.9-3.2); Mean Corpuscular HGB Conc 33.2 g/dl (32-36); Mean Corpuscular Hemoglobin 30.6 pg (26-34); Mean Corpuscular Volume 92.2 fl (80-100); Nucleated Red Blood Cells Absolute Auto 0.000 K/mm3 (0.0-0.012); Nucleated Red Blood Cells Perc 0.0 % (0.0-0.2); Platelet Count Result 519 k/mm3 (150-375); Red Blood Count 4.25 M/mm3 (4.6-6.20); White Blood Count 13.7 K/mm3 (4.5-10.0)
[2024-10-20 12:59] LABS: Alanine Aminotransferase 33 U/L (6-50); Albumin Level 4.2 g/dL (3.5-5.1); Alkaline Phosphatase 77 U/L (38-126); Anion Gap 8 mmol/L (4-12); Aspartate Amino Transferase 67 U/L (17-59); Bilirubin,Total 0.7 mg/dL (0.2-1.3); Blood Urea Nitrogen 5 mg/dL (9-20); Calcium 9.0 mg/dL (8.4-10.2); Carbon Dioxide 29 mmol/L (22-30); Chloride 97 mmol/L (98-107); Estimated Glomerular Filt Rate > 60; Glucose 100 mg/dL (65-110); Potassium 4.1 mmol/L (3.4-5.0); Sodium 134 mmol/L (137-145); Total Protein 7.6 g/dL (6.3-8.2)
[2024-10-20 13:35] LABS: Prostate Specific Antigen 1.0 ng/mL (< OR = 4.0); Thyroid Stimulating Hormone 3.980 uIU/mL (0.465-4.680)
[2024-10-20 13:49] LABS: Ferritin 454.00 ng/mL (11.1-264)
[2024-10-20 13:54] LABS: Vitamin B12 921.0 pg/mL (239-931)
== END 2024-10-20 10:22 | disposition home or self-care (01) ==
PROVIDERS: PCP Internal Medicine; Visit Provider Clinical Nurse Specialist
DX: Z12.5 Encounter for screening for malignant neoplasm of prostate (principal); I10 Essential (primary) hypertension; E78.5 Hyperlipidemia, unspecified; E87.1 Hypo-osmolality and hyponatremia; D64.9 Anemia, unspecified; I63.512 Cerebral infarction due to unspecified occlusion or stenosis of left middle cerebral artery; Z79.01 Long term (current) use of anticoagulants; Z86.73 Personal history of transient ischemic attack (TIA), and cerebral infarction without residual deficits
CPT/HCPCS: 36415; 80053; 82607; 82728; 82746; 84153; 84443; 85025; G0103

== ENCOUNTER 2024-10-20 10:48 | Outpatient (CLI) | payer OTHER, SELFPAY ==
--- NOTE | ~2024-10-20 | XR_ITS ---
XR foot RT min 3V Ordering provider: CECILIA Chavez History: . M79.89 - Other specified soft tissue disorders . Comparison: None. FINDINGS: BONES: No acute fracture or dislocation. JOINT SPACES: Narrowing of the distal interphalangeal joints. No tarsal coalition. SOFT TISSUES: Soft tissue swelling over the dorsum of the foot. Calcaneal spur. IMPRESSION: No acute osseous abnormality of the right foot. Reviewed, dictated and finalized at location A.
--- NOTE | ~2024-10-20 | XR_ITS ---
XR ankle RT min 3V Ordering provider: CECILIA Chavez History: . M79.89 - Other specified soft tissue disorders . Comparison: None. FINDINGS: BONES: No acute fracture or dislocation. JOINT SPACES: Normal. SOFT TISSUES: Soft tissue swelling over the medial and lateral malleoli. Calcaneus spur. IMPRESSION: No acute osseous abnormality of the right ankle. Reviewed, dictated and finalized at location A.
== END 2024-10-20 10:49 | disposition home or self-care (01) ==
LOC: GOSHIMG 10:48
PROVIDERS: PCP Internal Medicine; Visit Provider Clinical Nurse Specialist
DX: M79.89 Other specified soft tissue disorders (principal); M25.471 Effusion, right ankle
CPT/HCPCS: 73610; 73630

== ENCOUNTER 2024-11-08 09:17 | Outpatient (CLI) | payer OTHER, SELFPAY ==
--- OUTSIDE RECORDS SUMMARY | 2024-11-08 09:24 | XMS_ITS | Clinical Summary ---
Author Organization [facility] Address [address] [place] [address] Care Team Providers Care Stitch Bonder Machine Operator Helper Name Role Phone Kartik Lunsford DO Primary Care Provider [phone] Source Comments [facility],non-owned Affiliates and Associated Physician Practices is amultiple site organization consisting of ambulatory clinics and hospital sitesin [place], [place], [place] and [place]. This disclosure is being madepursuant to the Care Everywhere program and may not contain all information available regarding this patient. Last updated 18.[facility] Allergies No known active allergies Medications * [...] Encounters Date Type Department Care Team Description 10/13/2024 1:10 AM CDT Clinical Support [facility] - Cardiology [address] [place] [phone] PFO (patent foramen ovale) (HCC) ; Acute ischemic stroke (HCC); Status post placement of implantable loop recorder 10/02/2024 8:04 PM CDT - 10/03/2024 9:55 AM CDT Emergency [facility] [address] [place] [phone] Discharge Disposition: Left Against Medical Advice/Discontinued Care 10/02/2024 Travel 09/08/2024 1:10 AM CDT Clinical Support [facility] - Cardiology [address] [place] [phone] PFO (patent foramen ovale) (HCC) ; Acute ischemic stroke (HCC); Status post placement of implantable loop recorder from Last 3 Months Social History Tobacco [...] Recorded Patient Health Questionnaire-2 Score 0 09/22/2023 [facility] - Occupational Stress [...] place to sleep or slept in a senior care (including now)? 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 Gender Identity Not on file [...] [facility] - Cardiology [address], [address] [phone] 12/22/2024 1:00 AM CDT Clinical Support [facility] Cardiology [address], [address] [phone] 01/26/2025 1:00 AM CDT Clinical Support [facility]iology [address], [address] [phone] 03/02/2025 1:00 AM JEWEL CUPPING MACHINE OPERATOR Clinical Support [facility] - Cardiology [address], [address] [phone] 04/06/2025 1:00 AM JEWEL CUPPING MACHINE OPERATOR Clinical Support [facility] Cardiology [address], [address] [phone] Health Maintenance Due Date Last Done Comments [...] exists DEPRESSION SCREENING 04/20/2024 09/21/2023 INFLUENZA VACCINE (#1) 2024 HEPATITIS B VACCINE Aged Out No [...] this topic Medical Devices Implanted Type Area Process Lead Device Identifier Shelf Expiration Date Model / Serial / Lot Sys Crd Mntr Rvl Linq Ii - [id number] Implanted:Qty: 1 on 09/21/2023 by Rebekah Dhillon MD at [facility] [id number] 08/05/2024 [id number] SYS / [id number] [employer] Cv 25mm Spt Sft Wire [facility] [id number] Implanted:Qty: 1 on 06/06/2024 by Charlette Scruggs MD at [facility] [employer] [id number] 09/20/2025 [id number] / [id number] / [id number] Procedures Procedure Name Priority Date/Time Associated Diagnosis Comments CARDIAC PROCEDURE ORDER 10/12/2024 ERYTHROCYTE SEDIMENTATION RATE STAT 10/02/2024 9:05 PM CDT C-REACTIVE PROTEIN MELO 10/02/2024 9: 05 PM CDT COMPREHENSIVE METABOLIC PANEL STAT 10/02/2024 9:05 PM CDT CBC W AUTO DIFFERENTIAL STAT 10/02/2024 9:05 PM CDT [place] ILR DEVICE INTERROGAT REMOTE Routine 09/24/2024 10:12 AM CDT PFO (patent foramen ovale) (HCC) Acute ischemic stroke (HCC) Status post placement of implantable loop recorder CARDIAC PROCEDURE ORDER 09/07/2024 from Last 3 Months Results * CARDIAC PROCEDURE ORDER (10/12/2024) Only the most recent of2 resultswithin the time period is included. Narrative 10/12/2024 Ordered by an unspecified provider. us Scanned Document CARDIAC SERVICES ORDERABLES Fin al Result * C-REACTIVE PROTEIN (10/02/2024 9:05 PM CDT) Pathologist [facility] C-Reactive Protein <0.5 <=0.5 mg/dL 10/02/2024 9:42 PM CDT [facility] Blood BLOOD SPECIMEN / Unknown Venipuncture / Unknown 10/02/2024 9:05 PM CDT 10/02/2024 9:10 PM CDT us Odalis Miramontes PA-C LAB - CHEMISTRY ORDERABLES Josephine batista Result [facility] [address] [phone], [facility] [phone] * ERYTHROCYTE SEDIMENTATION RATE (10/02/2024 9:05 PM CDT) Pathologist [facility] Erythrocyte Sedimentation Rate Westergren 9 0 - 20 MM/HR 10/02/2024 9:31 PM [facility] Blood BLOOD SPECIMEN / Unknown Venipuncture / Unknown 10/02/2024 9:05 PM CDT 10/02/2024 9:10 PM CDT Odalis Miramontes PA-C LAB - HEMATOLOGY ORDERABLES Fin al Result [facility] [address] [place] [phone], [facility] [phone] * (ABNORMAL) CBC W AUTO DIFFERENTIAL (10/02/2024 [...] LAB - HEMATOLOGY ORDERABLES Fin al Result [facility] [address] [place] [address], [facility] [phone] * (ABNORMAL) COMPREHENSIVE METABOLIC PANEL (10/02/2024 9:05 PM CDT) BUN <5(L) 7 - 26 mg/dL 10/02/2024 9:41 PM T [facility] Creatinine 0.56(L) 0.71 - 1.16 mg/dL 10/02/2024 [...] PM CDT 10/02/2024 9:10 PM CDT Narrative [facility] - 10/02/2024 9:41 PM CDT Estimated Glomerular Filtration Rate (eGFR) calculated using the CKD-EPI Creatinine Equation (2020), per the National Kid[employer] Foundation and [place] [employer]ph[employer] recommendations. Odalis Miramontes PA-C LAB - CHEMISTRY ORDERABLES Josephine batista Result [facility] [address] [place] [address], [facility] [phone] * [place] ILR DEVICE INTERROGAT REMOTE (09/24/2024 10:12 AM [...] any further questions. Sincerely, Adriano Mcfadden 09/24/2024 Adriano Mcfadden MD PROCEDURE/MINOR SURGICAL ORDERAB LES Final Result from Last 3 Months Insurance [employer] AD[employer] PPO Advance Directives * Full Code (Latest Code Status on File) Date Activated Date Inactivated Comments 06/06/2024 11:27 AM 06/06/2024 5:05 PM * Full Code Date Activated Date Inactivated Comments 09/17/2023 1:06 PM 09/23/2023 10:32 PM Care Teams Stitch Bonder Machine Operator Helper Relationship Specialty Start Date End Date Kartik Lunsford DO [address] [place] [phone] PCP - General Internal Medicine 10/30/23
[2024-11-08 19:02] LABS: Hematocrit 39.3 % (42.0-52.0); Hemoglobin 12.4 g/dL (14.0-18.0); Immature Granulocyte Percent A 0.3 % (0-0.5); Lymphocytes Absolute Auto 2.21 K/mm3 (0.9-3.2); Mean Corpuscular HGB Conc 31.6 g/dl (32-36); Mean Corpuscular Hemoglobin 29.8 pg (26-34); Mean Corpuscular Volume 94.5 fl (80-100); Nucleated Red Blood Cells Absolute Auto 0.000 K/mm3 (0.0-0.012); Nucleated Red Blood Cells Perc 0.0 % (0.0-0.2); Platelet Count Result 324 k/mm3 (150-375); Red Blood Count 4.16 M/mm3 (4.6-6.20); White Blood Count 7.0 K/mm3 (4.5-10.0)
[2024-11-08 19:34] LABS: Alanine Aminotransferase 27 U/L (6-50); Albumin Level 4.2 g/dL (3.5-5.1); Alkaline Phosphatase 85 U/L (38-126); Anion Gap 6 mmol/L (4-12); Aspartate Amino Transferase 64 U/L (17-59); Bilirubin,Total 0.5 mg/dL (0.2-1.3); Blood Urea Nitrogen 7 mg/dL (9-20); Calcium 9.1 mg/dL (8.4-10.2); Carbon Dioxide 28 mmol/L (22-30); Chloride 99 mmol/L (98-107); Estimated Glomerular Filt Rate > 60; Glucose 100 mg/dL (65-110); Potassium 5.0 mmol/L (3.4-5.0); Sodium 133 mmol/L (137-145); Total Protein 7.3 g/dL (6.3-8.2)
[2024-11-08 19:43] LABS: Iron 62 ug/dL (49-181)
[2024-11-08 19:54] LABS: Percent Iron Saturation 21 % (20-50)
[2024-11-08 20:20] LABS: Ferritin 391.00 ng/mL (11.1-264)
== END 2024-11-08 09:18 | disposition home or self-care (01) ==
LOC: ANHGOSHLAB 09:18
PROVIDERS: PCP Internal Medicine; Visit Provider Clinical Nurse Specialist
DX: R79.89 Other specified abnormal findings of blood chemistry (principal); R74.8 Abnormal levels of other serum enzymes; D72.829 Elevated white blood cell count, unspecified; I10 Essential (primary) hypertension
CPT/HCPCS: 36415; 80053; 82728; 83540; 83550; 85025